=== PATIENT | male | born 1940 | race Caucasian/White ===

== ENCOUNTER 2020-04-10 14:57 | Emergency (ER) | payer OTHER ==
[~2020-04-10] VITALS: Ht 162.6 cm; Wt 66.7 kg
[2020-04-10] MEDS ORDERED: ONDANSETRON HCL/PF 4 MG/2 ML VIAL IVP ONE (15:30)
[2020-04-10] MEDS ORDERED: IV NS 0.9% 1,000 ML BAG IV ONE (15:30)
--- NOTE | 2020-04-10 15:48 | NUR ---
JAKE FROM HOME TO ER BED 3. AAOX4. NOT IN RESP DISTRESS. BREATHING EVEN AND UNLABORED. BROUGHT IN FOR GENERALIZED WEAKNESS. PER PT, HE HAD DIARRHEA. WHEN HE WENT FOR A WALK FELT WEAK AND HAD TO SIT DOWN. PT DENEIS ANY PASSING OUT NOOR HAVING A FALL. WAS AT THE BEDSIDE FOR EVAL. ORDERS RECEIVED, NOTED AND CARRIED OUT. IV LNE ESTABLISHED ON R AC 20G, BLOOD DRAWN AND GIVEN TO [employer] AT BEDSIDE. PT ON MONITOR-
[2020-04-10] MEDS ORDERED: ONDANSETRON HCL/PF 4 MG/2 ML VIAL ONE (15:53)
[2020-04-10 16:02] LABS: BASOPHILS # (AUTO) 0.1 /CMM (0.0-0.2); BASOPHILS % (AUTO) 0.6 % (0.0-2.0); EOSINOPHILS % (AUTO) 0.3 % (0.0-6.0); HEMATOCRIT 43 % (39-51); HEMOGLOBIN 14.4 g/dL (13.5-17.5); LYMPHOCYTES # (AUTO) 1.1 /CMM (0.8-4.8); LYMPHOCYTES % (AUTO) 7.8 % (20.0-44.0); MEAN CORPUSCULAR HGB CONC 34 g/dl (31.0-36.0); MEAN CORPUSCULAR VOLUME 100 fL (80-96); MONOCYTES # (AUTO) 0.7 /CMM (0.1-1.30); MONOCYTES % (AUTO) 5.2 % (2.0-12.0); NEUTROPHILS # (AUTO) 11.7 /CMM (1.8-8.9); NEUTROPHILS % (AUTO) 86.1 % (43.0-81.0); PLATELET COUNT (AUTO) 239 /CMM (150-450); RED BLOOD CELL COUNT(AUTO) 4.28 MIL/uL (4.5-6.0); WHITE BLOOD COUNT (AUTO) 13.6 K/uL (4.3-11.0)
[2020-04-10 16:09] LABS: CARBON DIOXIDE 23 mmol/L (21-32); CHLORIDE 98 mmol/L (98-107); CREATININE 1.8 mg/dL (0.6-1.3); GLUCOSE 163 mg/dL (74-106); POTASSIUM 4.7 mmol/L (3.5-5.1); SODIUM SERUM 132 mmol/L (136-145); UREA NITROGEN, BLOOD 15 mg/dL (7-18)
--- NOTE | 2020-04-10 16:15 | NUR ---
VERIFIED WITH ER MD THAT PT'S CREATININE IS 1.8 AND HAVING A CTA. MD OK TO DO PROCEDURE EVEN IF CREATININE IS 1.8, PER MD GFR IS NORMAL
[2020-04-10] MEDS ORDERED: IV NS 0.9% 250 ML IV ONE (16:19)
[2020-04-10] MEDS ORDERED: IOHEXOL-300 100 ML VIAL IV ONE (16:19)
[2020-04-10 16:23] LABS: ALANINE AMINOTRANSFERASE 34 U/L (12-78); ALBUMIN 3.6 g/dL (3.4-5.0); ALKALINE PHOSPHATASE 64 U/L (46-116); ASPARTATE AMINOTRANSFERASE 35 U/L (15-37); BILIRUBIN,DIRECT 0.2 mg/dL (0.0-0.2); BILIRUBIN,TOTAL 0.8 mg/dL (0.2-1.0); LIPASE 99 U/L (73-393)
[2020-04-10] MEDS ORDERED: ONDA4TAB11 PO (17:14)
--- NOTE | 2020-04-10 17:34 | NUR ---
Patient discharged to home in stable condition. Written and verbal after care instructions given. Patient verbalizes understanding of instruction.IV removed. Catheter intact and site benign. Pressure and 4x4 applied to site. No bleeding noted. Pt ambulatory with a steady gait
--- NOTE | 2020-04-10 18:15 | NUR ---
ambulatory No obvious distress. For Discharge Patient discharged to home in stable condition. Written and verbal after care instructions given. Patient verbalizes understanding of instruction.
[2020-04-10 18:16] VITALS: BP 100/52
== END 2020-04-10 18:17 | disposition home or self-care (01) ==
LOC: ER 15:37
DX: K52.9 Noninfective gastroenteritis and colitis, unspecified (principal); I70.0 Atherosclerosis of aorta; I10 Essential (primary) hypertension; Z88.0 Allergy status to penicillin; Z79.899 Other long term (current) drug therapy; Z60.2 Problems related to living alone
CPT/HCPCS: 36415; 74177; 76705; 80048; 80076; 83690; 84484; 85025; 93005; 96361; 96374; 99284; J2405; J7030; J7050; Q9967